=== PATIENT | female | born 1960 | race Caucasian/White ===

== ENCOUNTER 2017-09-12 07:56 | Emergency (ER) | payer MEDICAID ==
[~2017-09-12] VITALS: Ht 157.5 cm; Wt 64.0 kg
[~2017-09-12 07:56] MED LIST: ASPI-515 PO
[2017-09-12 08:04] VITALS: BP 128/84
[2017-09-12] MEDS ORDERED: DEXT118L3 PO (08:28)
[2017-09-12] MEDS ORDERED: KETOROLAC 30 MG/1 ML IM ONE (08:30)
[2017-09-12] MEDS ORDERED: KETOROLAC 30 MG/1 ML ONE (08:31)
== END 2017-09-12 10:29 | disposition home or self-care (01) ==
LOC: ED 09:06
DX: J44.1 Chronic obstructive pulmonary disease with (acute) exacerbation (principal); F17.210 Nicotine dependence, cigarettes, uncomplicated
CPT/HCPCS: 71101; 96372; 99284; J1885

== ENCOUNTER 2018-01-16 14:19 | Inpatient (IN) | payer MEDICAID ==
[~2018-01-16] VITALS: Ht 157.5 cm; Wt 70.4 kg
[~2018-01-16 14:19] MED LIST changes: +DEXT118L3 PO
[2018-01-16] MEDS ORDERED: SODIUM CHLORIDE 0.9% 1,000ML IVBOLUS ONE (14:30)
[2018-01-16] MEDS ORDERED: PLEASE ENTER HEIGHT AND WEIGHT MC SCH (14:30)
[2018-01-16] MEDS ORDERED: LIDOCAINE-MPF 1%, 5ML INFIL ONE (14:30)
[2018-01-16] MEDS ORDERED: LIDOCAINE-MPF 1%, 5ML ONE (14:41)
[2018-01-16] MEDS ORDERED: DIPHENHYDRAMINE 50 MG/ML, 1ML ONE (14:53)
[2018-01-16] MEDS ORDERED: FAMOTIDINE 20 MG/2 ML ONE (14:53)
[2018-01-16] MEDS ORDERED: methylPREDNISolone SOD SUCC 125 MG/2 ML ONE (14:53)
[2018-01-16] MEDS ORDERED: DIPHENHYDRAMINE 50 MG/ML, 1ML IVPush ONE (15:00)
[2018-01-16] MEDS ORDERED: methylPREDNISolone SOD SUCC 125 MG/2 ML IVPush ONE (15:00)
[2018-01-16] MEDS ORDERED: FAMOTIDINE 20 MG/2 ML IVPush ONE (15:00)
[2018-01-16] MEDS ORDERED: AMPICILLIN/SULBACTAM 3 GM in SODIUM CHLORIDE 0.9% 100 ML IV ONE (16:00)
[2018-01-16] MEDS ORDERED: VANCOMYCIN PER PHARMACY MC ONE (16:00)
[2018-01-16 16:14] LABS: BASOPHILS # (AUTO) 0.02 x10^3/uL (0-0.1); BASOPHILS % (AUTO) 0 % (0-1); EOSINOPHILS # (AUTO) 0.09 x10^3/uL (0-0.4); EOSINOPHILS % (AUTO) 1 % (1-7); LYMPHOCYTES # (AUTO) 1.66 x10^3/uL (1-3.4); LYMPHOCYTES % (AUTO) 14 % (22-44); MD NO; MEAN CORPUSCULAR HEMOGLOBIN 33.4 pg (27.0-34.8); MEAN CORPUSCULAR VOLUME 95.4 fL (80-100); MONOCYTES # (AUTO) 0.57 x10^3/uL (0.2-0.8); MONOCYTES % (AUTO) 5 % (2-9); NEUTROPHILS # (AUTO) 9.39 x10^3/uL (1.8-6.8); NEUTROPHILS % (AUTO) 80 % (42-75); PLATELET COUNT 312 x10^3/uL (130-400); RED CELL DISTRIBUTION WIDTH 12.8 % (9.6-15.2)
[2018-01-16 16:25] LABS: ALBUMIN 3.2 g/dL (3.4-5.0); ANION GAP 8 mmol/L (5-15); CALCIUM 8.1 mg/dL (8.5-10.1); CHLORIDE 100 mmol/L (98-107)
[2018-01-16 16:29] LABS: ALANINE AMINOTRANSFERASE 97 U/L (12-78); ALKALINE PHOSPHATASE 158 U/L (45-117); BILIRUBIN,TOTAL 0.5 mg/dL (0.2-1.0); CREATININE 0.81 mg/dL (0.55-1.02); TOTAL PROTEIN 7.1 g/dL (6.4-8.2)
[2018-01-16] MEDS ORDERED: ONDANSETRON 2MG/ML, 2ML IVPush PRN (16:30)
[2018-01-16] MEDS ORDERED: ACETAMINOPHEN 325 MG TABLET PO PRN (16:30)
[2018-01-16] MEDS ORDERED: KETOROLAC 30 MG/1 ML IV PRN (16:30)
[2018-01-16] MEDS ORDERED: POLYETHYLENE GLYCOL 17 GM PACKET PO PRN (16:30)
[2018-01-16] MEDS ORDERED: BISACODYL 10 MG SUPP PR PRN (16:30)
[2018-01-16] MEDS ORDERED: VANCOMYCIN PER PHARMACY MC PRN (16:30)
[2018-01-16] MEDS ORDERED: ENALAPRILAT 1.25 MG/ML, 2ML IVPush PRN (16:30)
[2018-01-16] MEDS ORDERED: hydrALAzine 20 MG/ML, 1ML IVPush PRN (16:30)
[2018-01-16] MEDS ORDERED: ONDANSETRON ODT 4 MG PO PRN (16:30)
[2018-01-16] MEDS ORDERED: VANCOMYCIN PMX 1GM/200ML 200 ML IVPB ONE (16:30)
[2018-01-16] MEDS ORDERED: PHARMACOKINETIC MONITORING MC PRN (17:00)
[2018-01-16] MEDS: SODIUM CHLORIDE 0.9% 1,000 ML IV SCH (18:10)
[2018-01-16] MEDS: VANCOMYCIN 1,200 MG in SODIUM CHLORIDE 0.9% 250 ML IV SCH (18:11)
[2018-01-16 19:32] VITALS: BP 103/68
[2018-01-16] MEDS: ENOXAPARIN 40 MG/0.4 ML SQ SCH (20:34)
[2018-01-16 20:37] VITALS: BP 114/77
[2018-01-16] MEDS: HYDROcodone/APAP 5/325 TABLET PO PRN (20:57)
[2018-01-16] MEDS: AMPICILLIN/SULBACTAM 3 GM in SODIUM CHLORIDE 0.9% 100 ML IV SCH (20:58)
[2018-01-16] MEDS: methylPREDNISolone SOD SUCC 40 MG/ML IV SCH (23:49)
[2018-01-17 01:19] VITALS: BP 110/76
[2018-01-17] MEDS: HYDROcodone/APAP 5/325 TABLET PO PRN ×5 (01:41→22:15)
[2018-01-17] MEDS: AMPICILLIN/SULBACTAM 3 GM in SODIUM CHLORIDE 0.9% 100 ML IV SCH ×4 (04:26→22:11)
[2018-01-17 04:59] LABS: BASOPHILS # (AUTO) 0.03 x10^3/uL (0-0.1); BASOPHILS % (AUTO) 0 % (0-1); EOSINOPHILS % (AUTO) 0 % (1-7); LYMPHOCYTES # (AUTO) 0.96 x10^3/uL (1-3.4); LYMPHOCYTES % (AUTO) 11 % (22-44); MD NO; MEAN CORPUSCULAR HEMOGLOBIN 32.4 pg (27.0-34.8); MEAN CORPUSCULAR HGB CONC 33.9 g/dL (32.4-35.8); MEAN CORPUSCULAR VOLUME 95.6 fL (80-100); MEAN PLATELET VOLUME 8.1 fL (7.4-10.4); MONOCYTES # (AUTO) 0.12 x10^3/uL (0.2-0.8); MONOCYTES % (AUTO) 1 % (2-9); NEUTROPHILS # (AUTO) 7.93 x10^3/uL (1.8-6.8); NEUTROPHILS % (AUTO) 88 % (42-75); PLATELET COUNT 289 x10^3/uL (130-400); RED BLOOD COUNT 4.18 x10^6/uL (3.82-5.3); RED CELL DISTRIBUTION WIDTH 13.1 % (9.6-15.2)
[2018-01-17 05:06] LABS: ANION GAP 9 mmol/L (5-15); CALCIUM 8.2 mg/dL (8.5-10.1); CHLORIDE 104 mmol/L (98-107)
[2018-01-17 05:09] LABS: CREATININE 0.71 mg/dL (0.55-1.02)
[2018-01-17] MEDS: SODIUM CHLORIDE 0.9% 1,000 ML IV SCH ×2 (05:51→16:35)
[2018-01-17 06:46] VITALS: BP 105/59
[2018-01-17] MEDS: methylPREDNISolone SOD SUCC 40 MG/ML IV SCH ×2 (08:09→16:34)
[2018-01-17 14:15] VITALS: BP 130/83
[2018-01-17] MEDS: VANCOMYCIN 1,200 MG in SODIUM CHLORIDE 0.9% 250 ML IV SCH (18:13)
[2018-01-17 19:26] VITALS: BP 109/75
[2018-01-17] MEDS: ENOXAPARIN 40 MG/0.4 ML SQ SCH (22:11)
[2018-01-18] VITALS (10 sets, daily range): BP systolic 91–145; BP diastolic 52–88
[2018-01-18] MEDS: methylPREDNISolone SOD SUCC 40 MG/ML IV SCH ×3 (01:06→15:59)
[2018-01-18] MEDS: AMPICILLIN/SULBACTAM 3 GM in SODIUM CHLORIDE 0.9% 100 ML IV SCH ×4 (04:17→22:12)
[2018-01-18] MEDS: HYDROcodone/APAP 5/325 TABLET PO PRN ×4 (04:18→17:37)
[2018-01-18 06:10] LABS: ANION GAP 4 mmol/L (5-15); CALCIUM 8.1 mg/dL (8.5-10.1); CHLORIDE 106 mmol/L (98-107)
[2018-01-18 06:15] LABS: ALANINE AMINOTRANSFERASE 54 U/L (12-78); ALKALINE PHOSPHATASE 126 U/L (45-117); BILIRUBIN,TOTAL 0.2 mg/dL (0.2-1.0); CREATININE 0.64 mg/dL (0.55-1.02); TOTAL PROTEIN 6.3 g/dL (6.4-8.2)
[2018-01-18 06:23] LABS: BASOPHILS # (AUTO) 0.02 x10^3/uL (0-0.1); BASOPHILS % (AUTO) 0 % (0-1); EOSINOPHILS % (AUTO) 0 % (1-7); LYMPHOCYTES # (AUTO) 1.24 x10^3/uL (1-3.4); LYMPHOCYTES % (AUTO) 8 % (22-44); MD NO; MEAN CORPUSCULAR HGB CONC 34.2 g/dL (32.4-35.8); MEAN CORPUSCULAR VOLUME 96.4 fL (80-100); MEAN PLATELET VOLUME 8.1 fL (7.4-10.4); MONOCYTES # (AUTO) 0.31 x10^3/uL (0.2-0.8); MONOCYTES % (AUTO) 2 % (2-9); NEUTROPHILS # (AUTO) 13.95 x10^3/uL (1.8-6.8); NEUTROPHILS % (AUTO) 90 % (42-75); PLATELET COUNT 288 x10^3/uL (130-400); RED BLOOD COUNT 3.76 x10^6/uL (3.82-5.3); RED CELL DISTRIBUTION WIDTH 13.2 % (9.6-15.2)
[2018-01-18 06:26] LABS: HEMOGLOBIN A1C 5.6 % (4.2-6.3)
[2018-01-18] MEDS: SODIUM CHLORIDE 0.9% 1,000 ML IV SCH (08:40)
[2018-01-18] MEDS: ACYCLOVIR 650 MG in SODIUM CHLORIDE 0.9% 100 ML IV SCH ×2 (11:48→19:51)
[2018-01-18] MEDS: VANCOMYCIN 1,200 MG in SODIUM CHLORIDE 0.9% 250 ML IV SCH (17:38)
[2018-01-18] MEDS: DOCUSATE 100 MG CAPSULE PO PRN (17:38)
[2018-01-18] MEDS: ENOXAPARIN 40 MG/0.4 ML SQ SCH (22:12)
[2018-01-19] VITALS (10 sets, daily range): BP systolic 121–156; BP diastolic 71–89
[2018-01-19] MEDS: HYDROcodone/APAP 5/325 TABLET PO PRN ×5 (00:39→19:55)
[2018-01-19] MEDS: SODIUM CHLORIDE 0.9% 1,000 ML IV SCH ×3 (01:20→15:09)
[2018-01-19] MEDS: methylPREDNISolone SOD SUCC 40 MG/ML IV SCH ×3 (01:20→15:10)
[2018-01-19] MEDS: AMPICILLIN/SULBACTAM 3 GM in SODIUM CHLORIDE 0.9% 100 ML IV SCH ×4 (03:34→21:56)
[2018-01-19] MEDS: ACYCLOVIR 650 MG in SODIUM CHLORIDE 0.9% 100 ML IV SCH ×3 (04:07→19:55)
[2018-01-19] MEDS: VANCOMYCIN 1,200 MG in SODIUM CHLORIDE 0.9% 250 ML IV SCH ×2 (05:20→17:00)
[2018-01-19 06:36] LABS: BASOPHILS # (AUTO) 0.04 x10^3/uL (0-0.1); BASOPHILS % (AUTO) 0 % (0-1); EOSINOPHILS % (AUTO) 0 % (1-7); LYMPHOCYTES # (AUTO) 1.39 x10^3/uL (1-3.4); LYMPHOCYTES % (AUTO) 10 % (22-44); MD NO; MEAN CORPUSCULAR HEMOGLOBIN 32.8 pg (27.0-34.8); MEAN CORPUSCULAR HGB CONC 33.9 g/dL (32.4-35.8); MEAN CORPUSCULAR VOLUME 96.8 fL (80-100); MEAN PLATELET VOLUME 7.9 fL (7.4-10.4); MONOCYTES # (AUTO) 0.33 x10^3/uL (0.2-0.8); MONOCYTES % (AUTO) 2 % (2-9); NEUTROPHILS # (AUTO) 11.97 x10^3/uL (1.8-6.8); NEUTROPHILS % (AUTO) 87 % (42-75); PLATELET COUNT 341 x10^3/uL (130-400); RED BLOOD COUNT 4.18 x10^6/uL (3.82-5.3); RED CELL DISTRIBUTION WIDTH 13.3 % (9.6-15.2)
[2018-01-19 07:24] LABS: ALANINE AMINOTRANSFERASE 48 U/L (12-78); ALBUMIN 3.4 g/dL (3.4-5.0); ANION GAP 6 mmol/L (5-15); CALCIUM 8.8 mg/dL (8.5-10.1); CHLORIDE 106 mmol/L (98-107); CREATININE 0.69 mg/dL (0.55-1.02)
[2018-01-19 07:26] LABS: ALKALINE PHOSPHATASE 134 U/L (45-117); BILIRUBIN,TOTAL 0.2 mg/dL (0.2-1.0); TOTAL PROTEIN 7.1 g/dL (6.4-8.2)
[2018-01-19] MEDS: FAMOTIDINE 20 MG TABLET PO SCH ×2 (09:00→21:57)
[2018-01-19] MEDS: DOCUSATE 100 MG CAPSULE PO PRN ×2 (09:31→21:59)
[2018-01-19] MEDS: ENOXAPARIN 40 MG/0.4 ML SQ SCH (21:56)
[2018-01-20] VITALS (10 sets, daily range): BP systolic 133–169; BP diastolic 74–94
[2018-01-20] MEDS: methylPREDNISolone SOD SUCC 40 MG/ML IV SCH ×4 (01:01→21:21)
[2018-01-20] MEDS: SODIUM CHLORIDE 0.9% 1,000 ML IV SCH ×2 (01:01→13:10)
[2018-01-20] MEDS: HYDROcodone/APAP 5/325 TABLET PO PRN ×5 (02:12→22:26)
[2018-01-20] MEDS: AMPICILLIN/SULBACTAM 3 GM in SODIUM CHLORIDE 0.9% 100 ML IV SCH ×4 (03:52→22:26)
[2018-01-20] MEDS: ACYCLOVIR 650 MG in SODIUM CHLORIDE 0.9% 100 ML IV SCH ×3 (04:38→21:20)
[2018-01-20] MEDS: VANCOMYCIN 1,200 MG in SODIUM CHLORIDE 0.9% 250 ML IV SCH ×2 (05:54→19:28)
[2018-01-20 05:59] LABS: ALBUMIN 2.8 g/dL (3.4-5.0); ANION GAP 6 mmol/L (5-15); CALCIUM 8.5 mg/dL (8.5-10.1); CHLORIDE 106 mmol/L (98-107); CREATININE 0.77 mg/dL (0.55-1.02)
[2018-01-20 06:05] LABS: VANCOMYCIN,TROUGH 12.2 mcg/mL (5.0-10.0)
[2018-01-20 06:06] LABS: BASOPHILS # (AUTO) 0.03 x10^3/uL (0-0.1); BASOPHILS % (AUTO) 0 % (0-1); EOSINOPHILS % (AUTO) 0 % (1-7); LYMPHOCYTES # (AUTO) 1.61 x10^3/uL (1-3.4); LYMPHOCYTES % (AUTO) 14 % (22-44); MD NO; MEAN CORPUSCULAR HGB CONC 33.8 g/dL (32.4-35.8); MEAN CORPUSCULAR VOLUME 97.6 fL (80-100); MEAN PLATELET VOLUME 7.9 fL (7.4-10.4); MONOCYTES # (AUTO) 0.43 x10^3/uL (0.2-0.8); MONOCYTES % (AUTO) 4 % (2-9); NEUTROPHILS # (AUTO) 9.31 x10^3/uL (1.8-6.8); NEUTROPHILS % (AUTO) 82 % (42-75); PLATELET COUNT 291 x10^3/uL (130-400); RED CELL DISTRIBUTION WIDTH 13.4 % (9.6-15.2)
[2018-01-20] MEDS ORDERED: ERGOCALCIFEROL 50,000 UNIT CAPSULE PO SCH (06:30)
[2018-01-20] MEDS: FAMOTIDINE 20 MG TABLET PO SCH ×2 (08:33→21:21)
[2018-01-20] MEDS ORDERED: VANCOMYCIN 1,400 MG in SODIUM CHLORIDE 0.9% 250 ML IV SCH (17:00)
[2018-01-20] MEDS: DOCUSATE 100 MG CAPSULE PO PRN (19:27)
[2018-01-20] MEDS: ENOXAPARIN 40 MG/0.4 ML SQ SCH (21:21)
[2018-01-21] VITALS (12 sets, daily range): BP systolic 116–172; BP diastolic 76–93
[2018-01-21] MEDS: SODIUM CHLORIDE 0.9% 1,000 ML IV SCH (03:15)
[2018-01-21] MEDS: ACYCLOVIR 650 MG in SODIUM CHLORIDE 0.9% 100 ML IV SCH ×3 (03:16→19:49)
[2018-01-21] MEDS: AMPICILLIN/SULBACTAM 3 GM in SODIUM CHLORIDE 0.9% 100 ML IV SCH ×4 (03:16→23:12)
[2018-01-21] MEDS: HYDROcodone/APAP 5/325 TABLET PO PRN ×5 (03:16→21:37)
[2018-01-21 05:27] LABS: BASOPHILS # (AUTO) 0.03 x10^3/uL (0-0.1); BASOPHILS % (AUTO) 0 % (0-1); EOSINOPHILS % (AUTO) 0 % (1-7); LYMPHOCYTES # (AUTO) 1.58 x10^3/uL (1-3.4); LYMPHOCYTES % (AUTO) 13 % (22-44); MD NO; MEAN CORPUSCULAR HEMOGLOBIN 32.9 pg (27.0-34.8); MEAN CORPUSCULAR HGB CONC 33.7 g/dL (32.4-35.8); MEAN CORPUSCULAR VOLUME 97.6 fL (80-100); MEAN PLATELET VOLUME 7.9 fL (7.4-10.4); MONOCYTES # (AUTO) 0.43 x10^3/uL (0.2-0.8); MONOCYTES % (AUTO) 3 % (2-9); NEUTROPHILS # (AUTO) 10.63 x10^3/uL (1.8-6.8); NEUTROPHILS % (AUTO) 84 % (42-75); PLATELET COUNT 286 x10^3/uL (130-400); RED BLOOD COUNT 3.63 x10^6/uL (3.82-5.3); RED CELL DISTRIBUTION WIDTH 13.2 % (9.6-15.2)
[2018-01-21 05:38] LABS: ALBUMIN 2.8 g/dL (3.4-5.0); ANION GAP 6 mmol/L (5-15); CALCIUM 8.1 mg/dL (8.5-10.1); CHLORIDE 103 mmol/L (98-107)
[2018-01-21 05:41] LABS: ALANINE AMINOTRANSFERASE 33 U/L (12-78); ALKALINE PHOSPHATASE 92 U/L (45-117); BILIRUBIN,TOTAL 0.2 mg/dL (0.2-1.0); CREATININE 0.71 mg/dL (0.55-1.02); TOTAL PROTEIN 5.6 g/dL (6.4-8.2)
[2018-01-21] MEDS: methylPREDNISolone SOD SUCC 40 MG/ML IV SCH ×2 (08:16→17:22)
[2018-01-21] MEDS: VANCOMYCIN 1,200 MG in SODIUM CHLORIDE 0.9% 250 ML IV SCH ×2 (08:16→20:50)
[2018-01-21] MEDS: FAMOTIDINE 20 MG TABLET PO SCH ×2 (08:16→19:49)
[2018-01-21] MEDS: ENOXAPARIN 40 MG/0.4 ML SQ SCH (19:49)
[2018-01-22] MEDS: methylPREDNISolone SOD SUCC 40 MG/ML IV SCH ×3 (00:24→21:16)
[2018-01-22] MEDS: HYDROcodone/APAP 5/325 TABLET PO PRN ×6 (01:48→23:32)
[2018-01-22 02:06] VITALS: BP 145/87
[2018-01-22] MEDS: ACYCLOVIR 650 MG in SODIUM CHLORIDE 0.9% 100 ML IV SCH ×3 (03:49→19:33)
[2018-01-22] MEDS: AMPICILLIN/SULBACTAM 3 GM in SODIUM CHLORIDE 0.9% 100 ML IV SCH ×4 (05:20→23:26)
[2018-01-22 05:43] LABS: BASOPHILS # (AUTO) 0.04 x10^3/uL (0-0.1); BASOPHILS % (AUTO) 0 % (0-1); EOSINOPHILS # (AUTO) 0.14 x10^3/uL (0-0.4); EOSINOPHILS % (AUTO) 1 % (1-7); HCT (SEDRATE) 35.2 % (34.6-47.8); LYMPHOCYTES % (AUTO) 12 % (22-44); MD NO; MEAN CORPUSCULAR HEMOGLOBIN 32.8 pg (27.0-34.8); MEAN CORPUSCULAR HGB CONC 34.2 g/dL (32.4-35.8); MEAN CORPUSCULAR VOLUME 95.9 fL (80-100); MEAN PLATELET VOLUME 7.7 fL (7.4-10.4); MONOCYTES # (AUTO) 0.23 x10^3/uL (0.2-0.8); MONOCYTES % (AUTO) 2 % (2-9); NEUTROPHILS # (AUTO) 12.73 x10^3/uL (1.8-6.8); NEUTROPHILS % (AUTO) 85 % (42-75); PLATELET COUNT 299 x10^3/uL (130-400); RED BLOOD COUNT 3.68 x10^6/uL (3.82-5.3); RED CELL DISTRIBUTION WIDTH 13.1 % (9.6-15.2)
[2018-01-22 05:48] LABS: ANION GAP 7 mmol/L (5-15); CALCIUM 8.8 mg/dL (8.5-10.1); CHLORIDE 101 mmol/L (98-107)
[2018-01-22 05:51] LABS: CREATININE 0.67 mg/dL (0.55-1.02)
[2018-01-22 06:49] VITALS: BP 159/84
[2018-01-22] MEDS: VANCOMYCIN 1,200 MG in SODIUM CHLORIDE 0.9% 250 ML IV SCH ×2 (08:14→21:16)
[2018-01-22] MEDS: FAMOTIDINE 20 MG TABLET PO SCH ×2 (08:15→21:16)
[2018-01-22] MEDS: DOCUSATE 100 MG CAPSULE PO PRN (08:15)
[2018-01-22 10:10] VITALS: BP 159/89
[2018-01-22 10:14] VITALS: BP 164/82
[2018-01-22 12:34] VITALS: BP 152/81
[2018-01-22 18:55] VITALS: BP 147/83
[2018-01-22] MEDS: ENOXAPARIN 40 MG/0.4 ML SQ SCH (21:16)
[2018-01-23 02:01] VITALS: BP 151/86
[2018-01-23] MEDS: ACYCLOVIR 650 MG in SODIUM CHLORIDE 0.9% 100 ML IV SCH ×3 (04:05→20:27)
[2018-01-23] MEDS: HYDROcodone/APAP 5/325 TABLET PO PRN ×5 (04:11→21:24)
[2018-01-23] MEDS: AMPICILLIN/SULBACTAM 3 GM in SODIUM CHLORIDE 0.9% 100 ML IV SCH ×4 (05:20→23:41)
[2018-01-23 05:22] LABS: MEAN CORPUSCULAR VOLUME 97.2 fL (80-100); MEAN PLATELET VOLUME 7.6 fL (7.4-10.4); PLATELET COUNT 332 x10^3/uL (130-400); RED BLOOD COUNT 3.92 x10^6/uL (3.82-5.3); RED CELL DISTRIBUTION WIDTH 13.2 % (9.6-15.2)
[2018-01-23 05:34] LABS: ANION GAP 5 mmol/L (5-15); CALCIUM 8.8 mg/dL (8.5-10.1); CHLORIDE 100 mmol/L (98-107); CREATININE 0.68 mg/dL (0.55-1.02)
[2018-01-23 05:55] LABS: BASOPHILS # (AUTO) 0.05 x10^3/uL (0-0.1); BASOPHILS % (AUTO) 0 % (0-1); EOSINOPHILS # (AUTO) 0.01 x10^3/uL (0-0.4); EOSINOPHILS % (AUTO) 0 % (1-7); LYMPHOCYTES % (AUTO) 14 % (22-44); MD SCAN; MONOCYTES # (AUTO) 0.15 x10^3/uL (0.2-0.8); MONOCYTES % (AUTO) 1 % (2-9); NEUTROPHILS # (AUTO) 15.48 x10^3/uL (1.8-6.8); NEUTROPHILS % (AUTO) 85 % (42-75)
[2018-01-23 06:42] VITALS: BP 134/70
[2018-01-23] MEDS: FAMOTIDINE 20 MG TABLET PO SCH ×2 (08:55→21:25)
[2018-01-23] MEDS: methylPREDNISolone SOD SUCC 40 MG/ML IV SCH (08:55)
[2018-01-23] MEDS: VANCOMYCIN 1,200 MG in SODIUM CHLORIDE 0.9% 250 ML IV SCH ×2 (08:56→22:40)
[2018-01-23] MEDS ORDERED: methylPREDNISolone 4mg DOSE PACK ONE (12:10)
[2018-01-23 13:05] VITALS: BP 156/90
[2018-01-23 19:08] VITALS: BP 129/80
[2018-01-23] MEDS ORDERED: methylPREDNISolone 4mg DOSE PACK PO SCH (21:00)
[2018-01-23] MEDS: ENOXAPARIN 40 MG/0.4 ML SQ SCH (21:25)
[2018-01-23 22:45] VITALS: BP 139/84
[2018-01-23 22:46] VITALS: BP 130/79
[2018-01-24 01:07] VITALS: BP 136/81
[2018-01-24] MEDS: HYDROcodone/APAP 5/325 TABLET PO PRN ×4 (01:31→13:54)
[2018-01-24] MEDS: ACYCLOVIR 650 MG in SODIUM CHLORIDE 0.9% 100 ML IV SCH ×2 (04:47→12:05)
[2018-01-24] MEDS: AMPICILLIN/SULBACTAM 3 GM in SODIUM CHLORIDE 0.9% 100 ML IV SCH ×2 (05:41→11:38)
[2018-01-24 06:02] LABS: BASOPHILS # (AUTO) 0.06 x10^3/uL (0-0.1); BASOPHILS % (AUTO) 0 % (0-1); EOSINOPHILS # (AUTO) 0.27 x10^3/uL (0-0.4); EOSINOPHILS % (AUTO) 2 % (1-7); LYMPHOCYTES # (AUTO) 3.61 x10^3/uL (1-3.4); LYMPHOCYTES % (AUTO) 21 % (22-44); MD NO; MEAN CORPUSCULAR HEMOGLOBIN 32.9 pg (27.0-34.8); MEAN CORPUSCULAR HGB CONC 34.2 g/dL (32.4-35.8); MEAN CORPUSCULAR VOLUME 96.3 fL (80-100); MEAN PLATELET VOLUME 7.8 fL (7.4-10.4); MONOCYTES # (AUTO) 1.08 x10^3/uL (0.2-0.8); MONOCYTES % (AUTO) 6 % (2-9); NEUTROPHILS # (AUTO) 12.49 x10^3/uL (1.8-6.8); NEUTROPHILS % (AUTO) 71 % (42-75); PLATELET COUNT 265 x10^3/uL (130-400); RED BLOOD COUNT 3.57 x10^6/uL (3.82-5.3); RED CELL DISTRIBUTION WIDTH 13.3 % (9.6-15.2)
[2018-01-24 06:05] LABS: CHLORIDE 99 mmol/L (98-107)
[2018-01-24 06:10] LABS: ANION GAP 5 mmol/L (5-15); CALCIUM 8.3 mg/dL (8.5-10.1); CREATININE 0.67 mg/dL (0.55-1.02)
[2018-01-24] MEDS: FAMOTIDINE 20 MG TABLET PO SCH (08:12)
[2018-01-24 08:14] VITALS: BP 155/89
[2018-01-24 08:17] VITALS: BP 161/97
[2018-01-24] MEDS: VANCOMYCIN 1,200 MG in SODIUM CHLORIDE 0.9% 250 ML IV SCH (09:00)
[2018-01-24] MEDS ORDERED: VANCOMYCIN 1,200 MG in SODIUM CHLORIDE 0.9% 250 ML IV SCH (09:00)
[2018-01-24] MEDS ORDERED: DOXY100T10 PO (10:57)
[2018-01-24] MEDS ORDERED: METH4TAB2 PO (10:57)
[2018-01-24] MEDS ORDERED: FAMO20TA7 PO (10:57)
[2018-01-24] MEDS ORDERED: ERGO500017 PO (10:57)
[2018-01-24] MEDS ORDERED: ACYC-114 PO (10:57)
[2018-01-25] MEDS ORDERED: VANCOMYCIN 1,400 MG in SODIUM CHLORIDE 0.9% 250 ML IV SCH (02:30)
== END 2018-01-24 13:52 | disposition home or self-care (01) | DRG 580 ==
LOC: ED 15:51 → EDIP 16:02 → 3NE 16:32
PROVIDERS: ADMIT Internal Medicine; ATTEND Internal Medicine
PROC: 0C900ZZ Drainage of Upper Lip, Open Approach (ICD-10-PCS; principal; 2018-01-16)
DX: L02.01 Cutaneous abscess of face (principal); L03.211 Cellulitis of face; E44.1 Mild protein-calorie malnutrition; E87.1 Hypo-osmolality and hyponatremia; A60.00 Herpesviral infection of urogenital system, unspecified; T78.3XXA Angioneurotic edema, initial encounter; Z68.28 Body mass index [BMI] 28.0-28.9, adult; Z71.6 Tobacco abuse counseling; E55.9 Vitamin D deficiency, unspecified; F10.21 Alcohol dependence, in remission; F17.210 Nicotine dependence, cigarettes, uncomplicated; J44.9 Chronic obstructive pulmonary disease, unspecified; K74.60 Unspecified cirrhosis of liver; Z66 Do not resuscitate; Z80.3 Family history of malignant neoplasm of breast; Z82.3 Family history of stroke; Z86.19 Personal history of other infectious and parasitic diseases; Z86.73 Personal history of transient ischemic attack (TIA), and cerebral infarction without residual deficits; Z90.49 Acquired absence of other specified parts of digestive tract; Z98.51 Tubal ligation status
CPT/HCPCS: 10060; 36415; 99285; S0028; 80048; 80053; 80202; 82040; 82306; 83036; 83605; 85025; 85651; 86694; 86695; 86696; 87040; 87070; 87077; 87186; 87205; 96374; 96375; G0378; J0133; J0295; J1650; J3370; J7509; J1200; J2920; J2930; J7030; J7050

== ENCOUNTER 2020-04-14 09:09 | Emergency (ER) | payer MEDICAID ==
[~2020-04-14] VITALS: Ht 157.5 cm; Wt 75.0 kg
[~2020-04-14 09:09] MED LIST changes: +ACYC-114 PO; +DOXY100T23 PO; +ERGO500017 PO; +FAMO20TA7 PO; +METH4TAB2 PO
--- NOTE | 2020-04-14 09:25 | NUR ---
pt BIB [facility] from home c/o R flank pain and painful urination x10 days. pt reports that she thinks that she has a kidney infection. pt report increase in frequency and urgency of uriantion and that her urine is very foul smelling pt has hx of liver failure ad ETOH abuse pt is ambualtory pt reports that she has been febriel at home, but is afebrile at this time no family at bedside
[2020-04-14] MEDS ORDERED: OMEP20TA62 PO (09:31)
[2020-04-14 09:57] LABS: BASOPHILS % (AUTO) 0 % (0-1); EOSINOPHILS % (AUTO) 1 % (1-7); LYMPHOCYTES % (AUTO) 14 % (22-44); MEAN CORPUSCULAR HEMOGLOBIN 32.3 pg (27.0-34.8); MEAN CORPUSCULAR HGB CONC 34.2 g/dL (32.4-35.8); MONOCYTES % (AUTO) 8 % (2-9); NEUTROPHILS % (AUTO) 77 % (42-75); PLATELET COUNT 214 x10^3/uL (130-400); RED BLOOD COUNT 4.42 x10^6/uL (3.82-5.3); RED CELL DISTRIBUTION WIDTH 13.2 % (9.6-15.2)
[2020-04-14 09:58] LABS: MD NO
[2020-04-14] MEDS ORDERED: ONDANSETRON 2MG/ML, 2ML IVPush ONE (10:00)
[2020-04-14] MEDS ORDERED: SODIUM CHLORIDE FLUSH 10ML SYR IVF ONE (10:00)
--- NOTE | 2020-04-14 10:00 | NUR ---
Dr Bird has been to bedside for eval. pt has ambulated to for urine sample urine sample collected and sent warm blankets and bear hugger given for comfort
[2020-04-14 10:07] LABS: ALANINE AMINOTRANSFERASE 16 U/L (12-78); ALBUMIN 3.8 g/dL (3.4-5.0); ANION GAP 5 mmol/L (5-15); CALCIUM 9.2 mg/dL (8.5-10.1); CHLORIDE 103 mmol/L (98-107); CREATININE 0.87 mg/dL (0.55-1.02)
[2020-04-14 10:10] LABS: ALKALINE PHOSPHATASE 102 U/L (45-117); BILIRUBIN,TOTAL 0.7 mg/dL (0.2-1.0); TOTAL PROTEIN 7.5 g/dL (6.4-8.2)
[2020-04-14] MEDS ORDERED: ONDANSETRON 2MG/ML, 2ML ONE (10:26)
[2020-04-14 10:47] LABS: MICROSCOPIC INDICATED
--- NOTE | 2020-04-14 11:20 | NUR ---
pt resting in position of comfort chart up for MD recheck
[2020-04-14] MEDS ORDERED: CEFTRIAXONE PMX 1GM/50ML 50 ML ONE (11:36)
--- NOTE | 2020-04-14 11:42 | NUR ---
Dr Bird at bedside for recheck
--- NOTE | 2020-04-14 11:59 | NUR ---
pt resting in position of comfort watching TV. ABX infusing
[2020-04-14] MEDS ORDERED: CEFTRIAXONE PMX 1GM/50ML 50 ML IV ONE (12:00)
[2020-04-14 12:41] VITALS: BP 125/83
== END 2020-04-14 12:45 | disposition home or self-care (01) ==
LOC: ED 11:37
DX: N30.00 Acute cystitis without hematuria (principal); N10 Acute pyelonephritis; R50.9 Fever, unspecified; M54.5 Low back pain; R30.0 Dysuria; F17.200 Nicotine dependence, unspecified, uncomplicated
CPT/HCPCS: 36415; 80053; 81001; 83690; 85025; 87077; 87086; 87186; 96365; 96375; 99285; J0696; J2405